=== PATIENT | male | born 1970 ===

== ENCOUNTER 2020-05-06 12:29 | Day surgery (SDC) | payer OTHER ==
[2020-05-06] VITALS (8 sets, daily range): BP systolic 110–131; BP diastolic 60–90; PULSE 60–99; TEMP 97.8–97.9
[~2020-05-06] VITALS: Ht 188 cm; Wt 84.1 kg
[2020-05-06] MEDS ORDERED: HYZAAR 12.5 MG-1 TAB (12:56)
[2020-05-06] MEDS ORDERED: HCTZ12.5TAB PO (12:57)
[2020-05-06] MEDS ORDERED: COZAAR100 MG PO (12:57)
[2020-05-06] MEDS ORDERED: LEXAPRO20 MG PO (12:58)
--- NOTE | 2020-05-06 16:25 | NUR ---
VSS ON ROOM AIR. PATIENT STATES HE IS ALITTLE SORE BUT DENIES NAUSEA. PATIENT DRINKS COFFEE WITHOUT PROBLLEMS. 1635 IV DC'D WITH CATHETER TIP INACT. PRESSURE AND BANDAGE APPLIED.
[2020-05-06] MEDS ORDERED: NORCO 325 MG-51 TAB PO (16:39)
--- NOTE | 2020-05-06 16:45 | NUR ---
VSS ON ROOM AIR. PATIENT AMBULATED TO RESTROOM, SLOW STEADY GAIT. ACCOMPANIED BY AMB RN. PATIENT VOIDS WITHOUT PROBLEMS. DISCHARGE INSTRUCTIONS GIVEN VERBAL AND DISCHARGE PACKET PROVIDED TO PATIENT. RX FOR ULTRAM IN PACKET. QUESTIONS ANSWERED AND PATIENT VOICED UNDERSTANDING. PATIENT GIVEN FOLLOWUP APPOINTMENT DATE. PATIENT CHANGES INTO STREET [facility]. NOTIFIED. 1704 PATIENT DISCHARGED PER WHEEL CHAIR ACCOMPANIED BY AMB RN TO [facility].
--- NOTE | 2020-05-06 17:15 | NUR ---
CHARTING DONE ON THIS PATIENT WAS FOR ANOTHER PATIENT. FOR TIMES OF 1625 THROUGH 1704
--- NOTE | 2020-05-06 20:18 | NUR ---
PATIENT ALERT AND ORIENTED, AMBULATING AROUND THE ROOM. PATIENT ATE A SANDWICH AND TOLERATED IT WELL. PATIENT VOIDED WITH NO COMPLAINTS. IV TAKEN OUT AND WENT OVER DISHCHARGE INSTRUCTIONS WITH PATIENT. PATIENT HAD NO QUESTIONS OR CONCERNS. WALKED PATIENT DOWN WITH ALL OF HIS STUFF TO THE ER WHERE HIS WAS PICKING HIM UP.
== END 2020-05-06 19:30 | disposition home or self-care (01) ==
LOC: SDCO 12:29 → JCC 18:09 → SDCO 19:30
DX: K43.9 Ventral hernia without obstruction or gangrene (principal); Z88.8 Allergy status to other drugs, medicaments and biological substances; I10 Essential (primary) hypertension; F32.9 Major depressive disorder, single episode, unspecified; Z79.82 Long term (current) use of aspirin; K21.9 Gastro-esophageal reflux disease without esophagitis
CPT/HCPCS: OP; C1781; J0690; J1100; J1170; J1885; J2250; J2270; J2405; J2704; J3010; J7120